=== PATIENT | male | born 1950 | race Caucasian/White ===

== ENCOUNTER 2024-11-25 08:12 | Outpatient (AMB) | payer MEDICAID, SELFPAY ==
[2024-11-25 08:40] VITALS: BP 115/78; PULSE 70; RESP 19; TEMP 36; O2SAT 96; BMI 28.5
--- NOTE | 2024-11-25 08:40 | PD.ORTHCLVIS ---
Vital signs 11/25/24 08:40 Height 1.7 m Height Method Stated Weight 82.639 kg Weight Measurement Method Standing Scale BMI 28.5 BP 115/78 Blood Pressure Source Automatic Cuff Blood Pressure Location Left Upper Arm Position Sitting Respiration 19 Pulse 70 Pulse Source Monitor Temp 96.8 F Temp Source Temporal Artery Scan Pulse Oximetry (%) 96 Oxygen Delivery Method Room Air Med/Allergies Allergies & Medications Allergies No Known Allergies Allergy (Verified 11/25/24 08:41) Medication Reconciliation No Known Home Medications 11/25/24 [History Confirmed 11/25/24] Exam Exam Patient is in no acute distress and is cooperative with the examination today. Breathing is nonlabored. In no respiratory distress. Bilateral extremities were evaluated and demonstrates sensation intact to light touch. Palpable pedal pulses are present. No significant edema is present. Bilateral hips were examined. The patient has no pain with log roll of the hips. Internal rotation to 30 degrees and external rotation to 30 degrees is painless. Negative FADIR. The left knee was examined. The left knee is in varus alignment. Range of motion from 0-115 degrees. Knee is stable to varus and valgus as well as AP translation with <5mm. Patient has a negative McMurrays. There is no pain with patellofemoral compression and no crepitus noted. The knee is tender to palpation medially. The right knee was also examined. The right knee is in varus alignment. Range of motion from 0-120 degrees. Knee is stable to varus and valgus as well as AP translation with <5mm. Patient has a negative McMurrays. There is no pain with patellofemoral compression and no crepitus noted. The knee is tender to palpation medially. bilateral knee xrays from [facility] demonstrate complete joint space narrowing and osteophytes. There is singificant varus deformity,. Assessment and Plan Problem List (1) Bilateral primary osteoarthritis of knee: Status: Acute Plan: Patient is a 73-year-old female with bilateral knee pain and bilateral knee arthritis. He has failed conservative treatment. New to the pain. The pain quality life. On the right side he does have a prior tibial nail That would need to be removed prior to surgery. The pain is significantly worse than the left and good like to start with that side The nature and purpose of the total knee replacement, alternative method(s) of treatment, the material risks involved, and the possibility of complications were fully explained to the patient. The patient does NOT have any of the following contraindications to TKA: - Active infection of the knee joint, OR - Active systemic bacteremia, OR - Active skin infection or open wound at surgical site, OR - Neuropathic arthritis, OR - Severe, rapidly progressive neurological disease, OR - Severe medical condition that makes risks of surgery outweigh the potential benefit The patient was told the most common risks and complications associated with a total knee replacement include, but are not limited to: blood clots in the leg, fatal pulmonary embolism, dislocation of the prosthesis, intraoperative and postoperative fractures of the femur or tibia, infection, failure of the prosthesis or grafting materials, complications from anesthesia, reactions to blood transfusions, postoperative leg length inequality, instability of the knee replacement, nerve damage or injury, vascular injury, delayed wound healing, infection, other injury or even . In addition, there are risks associated with anesthesia given during this operation. Also, the patient was told that after undergoing a total knee replacement there may still be persistent pain or disability. The patient was informed that the success of this operation in part depends upon the mechanical devices which are going to be implanted and that these devices can fail or malfunction, and may need to be repaired or replaced and there are no guarantees as to the longevity of this device or its parts and that it or its parts could fail prematurely. The patient was also notified that during the course of surgery, there may be a need to use bone graft from donors, and that any bone graft used will be carefully screened for communicable diseases, including AIDS, hepatitis, Agusto-Creutzfeldt, or other diseases, but despite the screening procedures, there is a small chance that they could contract one of these diseases. Finally, the patient was asked to follow completely and fully with all advice and recommended treatments, and that recovery and ultimate outcome are affected by their compliance with recommended treatment. We discussed the risks, benefits and treatment alternatives, and the patient is interested in proceeding with surgery. We will try to set this up as expeditiously as possible. Advanced Care Planning Discussion Advance care planning discussed with:: patient and child Office Procedures GNS Level of Care Nursing/Assessment Patient Status: Initial/New Patient Nursing Assessment/Reassesment: Medication Reconciliation, Update PMH in EMR and Vital Signs Coordination of Care: Complex Care and Chronic Disease 1-5, Education Complex Pt/Fam, Consent,records obtained, informed consent, 1 Ins Authorization, Lab and Imaging orders, Results/Orders obtained and Staff clarify orders Special Needs: Language special needs New Patient Charge New Patient Point Assignment: 1124 New Patient Point Charge: ULTRASONIC HAND SOLDERER Level 4 ([id number]) MA Intake Visit Data Collection New Patient or Established: New Patient (never been to [facility]) Reason for Visit:: LEFT KNEE PAIN Seen by Clinical Staff ONLY (RN/MA): No Insulation Board Back Tender Required: Yes PCP or OBGYN visit in last 3 months: Yes Hx Now: No Do You Feel Safe at Home: Yes Authorities Contacted: N/A Questionairres Past Medical History Past Medical History Have you ever been diagnosed with any of the following: Surgical History Total Knee Replacement: Yes (RIGHT 2013) Subjective Visit Visit for: new patient and knee (RIGHT) Immunization / Flu Flu Vaccine in the Last 12 Months: No Flu Vaccine Exclusion Criteria: No Exclusion Criteria History of Present Illness Chief complaint: bilateral knee pain Patient ios a 73yo male with bilateral knee pain worse on the left. He had a history of a right tibial shaft fracture s/p nail 14 years ago. Patient has significant left arthritis and uses a cane because of the pain. He has tried antiinflammatories. Personal History Occupation: DISABLED Hobbies: NONE Pain Pain level (0-10): 5 Pain duration: WITH MOVEMENT Pain location: inside (medial) Pain quality: dull and aching Pain timing: increases with activity and stairs Associated signs & symptoms: stiffness Ambulatory data Ambulatory device: cane Treatments Improvement with previous injections: No Improvement with PT: No Improvement with NSAIDS: no Review of Systems Review of Systems: All systems negative unless otherwise noted in HPI.
== END 2024-11-25 09:16 | disposition home or self-care (01) ==
PROVIDERS: PCP Family Medicine; Referring Provider Family Medicine; Supervising Provider Orthopaedic Surgery Adult Reconstructive Orthopaedic Surgery; Visit Provider Orthopaedic Surgery Adult Reconstructive Orthopaedic Surgery
DX: M17.0 Bilateral primary osteoarthritis of knee (principal); M25.562 Pain in left knee; M25.561 Pain in right knee
CPT/HCPCS: 99204; G0463

== ENCOUNTER → 2024-11-25 | Outpatient (CLI) | payer MEDICAID, SELFPAY ==
--- NOTE | 2024-11-25 09:47 | XR_ITS ---
Examination: Bilateral knees 2 views Right lateral knee left lateral knee 2 views Bilateral axial knees single view TECHNIQUE: Bilateral AP knees standing single view, bilateral PA knees standing single view 30 degrees flexion Staining right lateral knee left lateral knee 2 views Bilateral axial knees single view total 5 views Exam date and time: November 25, 2024 1031 hours INDICATIONS: Bilateral knee pain chronic years FINDINGS: Moderate osteopenia Severe narrowing [id number] medial joint spaces bilaterally Partial visualization tibial intramedullary miladys Significant osteoarthritis lateral and especially bilateral patellofemoral joints No fracture IMPRESSION: Advanced tricompartment osteoarthritis including severe narrowing, [id number], medial joint spaces bilaterally
--- NOTE | 2024-11-25 09:47 | XR_ITS ---
Examination: Bilateral tibia-fibula is 4 views TECHNIQUE: AP lateral right and left tibia-fibula is total 4 views Exam date and time: November 25, 2024 1039 hours INDICATIONS: Bilateral tibia-fibula pain post injury 2013 FINDINGS: Thickened osteopenia No fracture or dislocation acute involving either lower leg Healed fractures distal right fibular shaft, proximal right tibial shaft Satisfactory position intramedullary tibial miladys Significant knee osteoarthritis IMPRESSION: Healed fractures right distal fibular shaft and proximal right tibial shaft
== END | disposition home or self-care (01) ==
LOC: CDIM 09:30
PROVIDERS: Referring Provider Orthopaedic Surgery Adult Reconstructive Orthopaedic Surgery; Visit Provider Orthopaedic Surgery Adult Reconstructive Orthopaedic Surgery
DX: M25.862 Other specified joint disorders, left knee (principal); M25.861 Other specified joint disorders, right knee; M17.0 Bilateral primary osteoarthritis of knee; Z87.81 Personal history of (healed) traumatic fracture
CPT/HCPCS: 73564; 73590

== ENCOUNTER 2025-02-20 15:01 | Outpatient (AMB) | payer MEDICAID, SELFPAY ==
[2025-02-20 15:20] VITALS: BP 126/76; PULSE 72; RESP 19; TEMP 36.6; O2SAT 96; BMI 29.0
--- NOTE | 2025-02-20 15:20 | PD.ORTHCLVIS ---
Vital signs 02/20/25 15:20 Height 1.7 m Height Method Measured Weight 83.971 kg Weight Measurement Method Standing Scale BMI 29.0 BP 126/76 Blood Pressure Source Automatic Cuff Blood Pressure Location Right Upper Arm Position Sitting Respiration 19 Pulse 72 Pulse Source Monitor Temp 97.8 F Temp Source Temporal Artery Scan Pulse Oximetry (%) 96 Oxygen Delivery Method Room Air Med/Allergies Allergies & Medications Allergies No Known Allergies Allergy (Verified 02/20/25 15:21) Medication Reconciliation No Known Home Medications 11/25/24 [History Confirmed 02/20/25] Exam Exam Patient is in no acute distress and is cooperative with the examination today. Breathing is nonlabored. In no respiratory distress. Bilateral extremities were evaluated and demonstrates sensation intact to light touch. Palpable pedal pulses are present. No significant edema is present. Bilateral hips were examined. The patient has no pain with log roll of the hips. Internal rotation to 30 degrees and external rotation to 30 degrees is painless. Negative FADIR. The left knee was examined. The left knee is in varus alignment. Range of motion from 0-115 degrees. Knee is stable to varus and valgus as well as AP translation with <5mm. Patient has a negative McMurrays. There is no pain with patellofemoral compression and no crepitus noted. The knee is tender to palpation medially. The right knee was also examined. The right knee is in varus alignment. Range of motion from 0-120 degrees. Knee is stable to varus and valgus as well as AP translation with <5mm. Patient has a negative McMurrays. There is no pain with patellofemoral compression and no crepitus noted. The knee is tender to palpation medially. bilateral knee xrays from [facility] demonstrate complete joint space narrowing and osteophytes. There is singificant varus deformity,. Assessment and Plan Problem List (1) Bilateral primary osteoarthritis of knee: Status: Acute Plan: Patient is a 73-year-old female with bilateral knee pain and bilateral knee arthritis. He has failed conservative treatment. He would like to start with surgery on the left knee as this is significantly worse. The pain is affecting his quality life and happiness. On the right side he does have a prior tibial nail That would need to be removed prior to surgery. The pain is significantly worse than the left and good like to start with that side The nature and purpose of the total knee replacement, alternative method(s) of treatment, the material risks involved, and the possibility of complications were fully explained to the patient. The patient does NOT have any of the following contraindications to TKA: - Active infection of the knee joint, OR - Active systemic bacteremia, OR - Active skin infection or open wound at surgical site, OR - Neuropathic arthritis, OR - Severe, rapidly progressive neurological disease, OR - Severe medical condition that makes risks of surgery outweigh the potential benefit The patient was told the most common risks and complications associated with a total knee replacement include, but are not limited to: blood clots in the leg, fatal pulmonary embolism, dislocation of the prosthesis, intraoperative and postoperative fractures of the femur or tibia, infection, failure of the prosthesis or grafting materials, complications from anesthesia, reactions to blood transfusions, postoperative leg length inequality, instability of the knee replacement, nerve damage or injury, vascular injury, delayed wound healing, infection, other injury or even . In addition, there are risks associated with anesthesia given during this operation. Also, the patient was told that after undergoing a total knee replacement there may still be persistent pain or disability. The patient was informed that the success of this operation in part depends upon the mechanical devices which are going to be implanted and that these devices can fail or malfunction, and may need to be repaired or replaced and there are no guarantees as to the longevity of this device or its parts and that it or its parts could fail prematurely. The patient was also notified that during the course of surgery, there may be a need to use bone graft from donors, and that any bone graft used will be carefully screened for communicable diseases, including AIDS, hepatitis, Agusto-Creutzfeldt, or other diseases, but despite the screening procedures, there is a small chance that they could contract one of these diseases. Finally, the patient was asked to follow completely and fully with all advice and recommended treatments, and that recovery and ultimate outcome are affected by their compliance with recommended treatment. We discussed the risks, benefits and treatment alternatives, and the patient is interested in proceeding with surgery. We will try to set this up as expeditiously as possible. Advanced Care Planning Discussion Advance care planning discussed with:: patient and child Office Procedures GNS Level of Care Nursing/Assessment Patient Status: Established Patient Nursing Assessment/Reassesment: Medication Reconciliation, Update PMH in EMR and Vital Signs Coordination of Care: Complex Care/Chronic Disease 5 or more, Education Complex Pt/Fam, Consent,records obtained, informed consent, 1 Ins Authorization, Results/Orders obtained and Staff clarify orders Established Patient Charge Established Patient Point Assignment: 120 Established Patient Point Charge: EP Level 4 (120-155) MA Intake Visit Data Collection New Patient or Established: Established Patient (seen at [facility] within 3 years) Reason for Visit:: PRE OP TKA Shearing Machine Feeder Required: Yes Do You Feel Safe at Home: Yes Questionairres Past Medical History Past Medical History Have you ever been diagnosed with any of the following: Respiratory Problems Smoking: No Smoking Exposure: No Surgical History Total Knee Replacement: Yes (RIGHT 2013) Subjective Visit Visit for: new patient and knee (RIGHT) Immunization / Flu Flu Vaccine in the Last 12 Months: No Flu Vaccine Exclusion Criteria: No Exclusion Criteria and Already Received History of Present Illness Chief complaint: bilateral knee pain Patient ios a 73yo male with bilateral knee pain worse on the left. He had a history of a right tibial shaft fracture s/p nail 14 years ago. Patient has significant left arthritis and uses a cane because of the pain. He has tried antiinflammatories and has tried several years of home excercises. He is using a cane or a crutch because of the pain. Personal History Occupation: DISABLED Hobbies: NONE Red flag PMH: none BMI Counceling provided: Yes Pain Pain level (0-10): 5 Pain duration: WITH MOVEMENT Pain location: inside (medial) Pain quality: dull and aching Pain timing: increases with activity and stairs Associated signs & symptoms: stiffness Ambulatory data Ambulatory device: cane Treatments Improvement with previous injections: No Improvement with PT: No Improvement with NSAIDS: no Review of Systems Review of Systems: All systems negative unless otherwise noted in HPI.
== END 2025-02-20 15:34 | disposition home or self-care (01) ==
LOC: HODSRG 15:01
PROVIDERS: Supervising Provider Orthopaedic Surgery Adult Reconstructive Orthopaedic Surgery; Visit Provider Orthopaedic Surgery Adult Reconstructive Orthopaedic Surgery
DX: M17.0 Bilateral primary osteoarthritis of knee (principal); M25.562 Pain in left knee; M25.561 Pain in right knee
CPT/HCPCS: 99214; G0463

== ENCOUNTER → 2025-02-27 | Outpatient (CLI) | payer MEDICAID, SELFPAY ==
--- NOTE | 2025-02-27 16:00 | XR_ITS ---
Examination: CT left lower extremity, without contrast. 2-D sagittal reconstructions. 2-D coronal reconstructions. 3-D reconstructions. Date and time of exam:February 27, 2025 1820 hrs. Indications: Diagnosis unilateral left knee osteoarthritis left knee pain one year CTDI: vol (mGy):10.1 DLP: (mGycm):612 Technique: Multiple 1.25 mm axial sections of the left lower extremity without intravenous contrast have been obtained. 2-D sagittal and coronal reconstructions have been obtained. 3-D reconstructions have been obtained. Low dose protocols were performed. One or more of the following dose reduction techniques were used; automated exposure control, adjustment of the mA and/or KV according to patient size, use of iterative reconstruction technique. Findings: Mild to moderate narrowing hip joints No hip fractures Advanced tricompartment osteoarthritis left knee,. Severe narrowing medial joint space No fracture No avascular necrosis No patellar dislocation Impression: Advanced tricompartment osteoarthritis left knee
== END | disposition home or self-care (01) ==
PROVIDERS: PCP Family Medicine; Referring Provider Orthopaedic Surgery Adult Reconstructive Orthopaedic Surgery; Visit Provider Orthopaedic Surgery Adult Reconstructive Orthopaedic Surgery
DX: M17.12 Unilateral primary osteoarthritis, left knee (principal)
CPT/HCPCS: 73700

== ENCOUNTER 2025-03-20 08:25 | Day surgery (SDC) | payer MEDICAID, SELFPAY ==
[2025-03-16 09:08] LABS: Basophils # (Auto) 0.1 Thou/mm3 (0.0-0.2); Basophils % (Auto) 1 % (0-2.5); Eosinophils # (Auto) 0.1 Thou/mm3 (0.0-0.5); Eosinophils % (Auto) 1 % (0-10); Hematocrit 41.9 % (41.0-53.0); Hemoglobin 14.1 g/dL (13.5-16.0); Immature Granulocytes % (Auto) 0 % (0-0); Immature Granulocytes Auto 0.03 Thou/mm3 (0.00-0.00); Lymphocytes # (Auto) 2.7 Thou/mm3 (1.0-4.8); Lymphocytes % (Auto) 31 % (10-50); Mean Corpuscular HGB Conc 33.7 g/dl (31.0-37.0); Mean Corpuscular Volume 86 fL (80-100); Monocytes # (Auto) 0.8 Thou/mm3 (0.0-0.8); Monocytes % (Auto) 9 % (0-12); Neutrophils # (Auto) 5.1 Thou/mm3 (1.8-7.7); Neutrophils % (Auto) 58 % (37-80); Nucleated Red Blood Cell % 0 /100 WBC (0); Platelet Count 260 Thou/mm3 (140-440); RDW Standard Deviation 43.6 fL (35.1-43.9); Red Blood Count 4.86 Miln/mm3 (4.50-5.90); White Blood Count 8.8 Thou/mm3 (3.8-10.6)
[2025-03-16 09:30] LABS: Alanine Aminotransferase 24 U/L (10-49); Albumin, Serum 4.3 gm/dL (3.4-4.8); Albumin/Globulin Ratio 1.6 (1.2-2.2); Alkaline Phosphatase 92 U/L (46-116); Anion Gap 9 (7-16); Aspartate Amino Transferase 25 U/L (0-34); BUN/Creatinine Ratio 8 Ratio (12-20); Bilirubin,Total 0.8 mg/dL (0.3-1.2); Blood Urea Nitrogen 9 mg/dL (9-23); Calcium 8.9 mg/dL (8.3-10.6); Calcium (Corrected) 8.9 mg/dL (8.5-10.1); Chloride 106 mMol/L (98-107); Creatinine (Component) 1.1 mg/dL (0.6-1.3); Estimated Creatinine Clearance 60.9 mL/min (>60); Globulin 2.7 gm/dL (2.3-3.5); Glucose 99 mg/dL (74-106); Osmolality,Calculated 278 (275-295); Potassium 4.1 mMol/L (3.4-5.1); Sodium 140 mMol/L (136-145); eGFR > 60 See Note
[2025-03-16 09:39] LABS: Partial Thromboplastin Time 27.4 Seconds (22.0-36.0)
[2025-03-20] VITALS (18 sets, daily range): BP systolic 113–155; BP diastolic 74–96; PULSE 60–95; RESP 12–20; TEMP 36.2–36.7; O2SAT 93–98; BMI 29.6
[2025-03-20] MEDS: ACETAMINOPHEN 325 MG TABLET 650 MG PO (09:21)
[2025-03-20] MEDS: MELOXICAM 7.5 MG TABLET PO (09:22)
[2025-03-20] MEDS: PREGABALIN 75 MG CAPSULE PO (09:22)
[2025-03-20] MEDS: RINGERS LACTATED 1000 ML 1,000 ML 20 ML IV (09:23)
--- NOTE | 2025-03-20 09:40 | SUR.PREOP ---
Patient expressed gratitude for prayer before their procedure.
--- NOTE | 2025-03-20 13:37 | ESOP_ITS ---
Date of Procedure 03/20/25 Pre Op Diagnosis left knee osteoarthritis Post Op Diagnosis left knee osteoarthritis Procedure left total knee replacement Findings full thickness cartilage loss and osteophytes Procedure Description Indication: The patient is a 74 year old who has a long history of left knee pain. X-rays show degenerative arthritis involving the knee. Over the past several years the patient has had increasing pain, progressive limitation in function. He has failed conservative measures including activity modification, physical therapy, injections, anti-inflammatories, and assistive devices. After a lengthy discussion of the risks and benefits, the patient presents now for total knee replacement. The nature and purpose of the total knee replacement, alternative method(s) of treatment, the material risks involved, and the possibility of complications were fully explained to the patient. The patient was told the most common risks and complications associated with a total knee replacement include, but are not limited to blood clots in the leg, fatal pulmonary embolism, dislocation of the prosthesis, intraoperative and postoperative fractures of the femur or tibia, infection, failure of the prosthesis or grafting materials, complications from anesthesia, reactions to blood transfusions, postoperative leg length inequality, instability of the knee replacement, nerve damage or injury, vascular injury, delayed wound healing, infections, other injury or even . In addition, there are risks associated with anesthesia given during this operation, temporary or permanent numbness on the skin lateral to the incision can be a complication unique to total knee surgery, and kneeling can be painful after knee replacement surgery. Also, the patient was told that after undergoing a total knee replacement there may still be pain or disability. We discussed with the patient that we will be using a robot-assisted technology. We discussed that there is a possibility of converting to manual instrumentation. The patient was informed that the success of this operation in part depends upon the mechanical devices which are going to be implanted and that these devices can fail or malfunction, and may need to be repaired or replaced and there are no guarantees as to the longevity of this device or its part and that it or its parts could fail prematurely. Finally, the patient was asked to follow completely and fully with all advice and recommended treatments, and that recovery and ultimate outcome are affected by their compliance with recommended treatment. Surgical technique: Patient was marked and consented in the pre-operative area. The patient was brought to the operating room and placed on the operating table in a supine position. Prior to positioning, a timeout procedure was performed between the surgeon, the anesthesiologist, and the nursing staff where the patient and the operative side were identified and confirmed. After adequate general anesthetic was obtained, the left lower extremity was prepped and draped in the usual sterile fashion. A weight based dose of Cefazolin were administered within 1 hour prior to incision. The robot was preregistered and calirated before the incision. The extremity was exsanguinated with an esmarch badge and tourniquet inflated to 250mmHg. A midline incision was made. A median parapatellar arthrotomy was made. The patella was subluxed laterally. A medial release was performed to expose the medial tibia. His femoral and tibial pins were placed through an intra incisional manner for both cases. Every effort was made to ensure that the distalmost aspect of the pin was hung in the second cortex. The arrays were then tightened several times to ensure that it was fixed for the remainder of the case. Both femoral and tibial checkpoints were then placed. We then went through the registration process of the bone. We then assessed the knee deformity and attempted to correct it. We also used the robot to aid in judging laxity in both extension and flexion. Final based on laxity and alignment we changed the preoperative assessment to obtain proper proper implant positioning and to correct deformity. Attention was then placed to the tibia. We made a tibial cut using the robot ensuring that both the MCL and the patella tendon were protected with retractors. We then went to the femur and made the posterior cut followed by the anterior cut and the anterior chamfer. The bone was then removed and we made a distal femur cut and a posterior chamfer cut. We verified all cuts. A trial reduction was performed with a size 4 femoral component and a size 4 keeled tibial component. The patella was cut and sized to a [33]. The patella tracked centrally, and no lateral retinacular release was necessary. The trial implants were removed. The arrays, pins, and checkpoints were all removed. We performed a verification that all pins were removed. The cut bone surfaces were lavaged. A size 4 left femoral component, a size 4 keeled tibial component were impacted into position. The knee was felt to be well balanced in the sagittal and coronal plane. The final 4x10 mm cruciate- substituting articular insert was impacted into the tibial tray. The knee was brought out to full extension, flexed up to 120 degrees. It was stable to varus and valgus stress and appropriately balanced in flexion and extension. The wounds were copiously irrigated following deflation of tourniquet. The medial retinaculum was reapproximated with #1 vicryl and quill. The subcutaneous tissues were closed with 0 and 2-0 interrupted Vicryl. The skin was closed with 3-0 Monofilament V loc suture. A sterile dressing was applied. The patient was transferred to a bed and brought to recovery in stable condition. The patient tolerated the procedure well. There were no intraoperative complications. Sponge and needle counts were correct times 2. As the attending surgeon, I attest I was present and performed the entire operation. Grafts/Implants Size 4 CR Femur Size 4 Tibia 10mm poly CS Anesthesia spinal Implants deana Pathology / specimen None Pathology comment: none Estimated Blood Loss 150 Condition Stable Disposition same day Surgeon Homero Pino MD Surgical Staff Operation Date: 03/20/25 14:00 Case Staff Anesthesiologist: Pedro Luis Kevin RN First Assistant: Danni Nice
--- NOTE | 2025-03-20 13:40 | XR_ITS ---
Examination: Left knee 2 views TECHNIQUE: AP lateral left knee 2 views portable Date time: Mar 20 2025 1651 hours INDICATIONS: Postop knee replacement today. FINDINGS: Total left knee replacement. Satisfactory alignment No fracture 23 mm ossified joint body posterior joint space IMPRESSION: Total left knee replacement with satisfactory alignment
--- NOTE | 2025-03-20 13:40 | SUR.PHASEI ---
pt arrived to PACU via gurney awake, alert, able to follow commands, breathing unlabored, dressing to left lower extremity clean, dry, and intact, pedal pulses present/strong/equal bilaterally, report from Fransisca LOMELI, Israel WILSON, and Dr Kevin.
--- NOTE | 2025-03-20 13:50 | SUR.PHASEI ---
pt tolerating oral fluids without difficulty swallowing or n/v
--- NOTE | 2025-03-20 15:00 | SUR.PHASEII ---
pt awake, alert, able to follow commands, breathing unlabored, dressing to left lower extremity clean, dry, and intact, VS stable, report to Carrie LOMELI
--- NOTE | 2025-03-20 17:27 | SUR.PHASEII ---
1500: Assumed care. Pt resting with no complaints voiced. VS stable. Dressing dry, clean, intact. Pedal pulses strong, regular. No c/o pain. 1630: Pt awake. Sitting up tolerating po fluids with no difficulty swallowing and no n/v. 1640: Pt states feeling to perineal area. Radiology here to take ordered x-rays. Daughter in at bedside. 1700: Physical Therapy here to do assessment. Pt assisted to restroom. Unable to void. 1730: at bedside. Pt being provided fluids.
--- NOTE | 2025-03-20 18:57 | SUR.PHASEII ---
181: Pt stated he felt he needed to void. Pt disconnected for monitor and assisted to restroom. Ambulation steady. 1819: Pt voided in toilet and assisted back to [facility]. Daughter at bedside to assist with dressing. 1844: Pt dressed and assisted to transport chair. Pt and daughter did not wish to use telephone dredge runner. Insisted grand daughter interpret via telephone. All stated understanding of discharge instructions. Pt also instructed to diamond picker his prescription at his pharmacy. Pt discharged from [facility] in stable condition.
== END 2025-03-20 18:45 | disposition home or self-care (01) ==
PROVIDERS: Anesthesiology; PCP Family Medicine; Referring Provider Orthopaedic Surgery Adult Reconstructive Orthopaedic Surgery; Visit Provider Orthopaedic Surgery Adult Reconstructive Orthopaedic Surgery
PROC: (CPT 27447; principal; 2025-03-20 13:45)
DX: M17.12 Unilateral primary osteoarthritis, left knee (principal); M25.762 Osteophyte, left knee
CPT/HCPCS: 27447; 20985; 36415; 73560; 80053; 85025; 85610; 85730; 97162; A4217; C1713; C1776; J2250; J2704; J2795; J3010; J3490; J7030; J7120; J7999; A4648; A4649; A9270

== ENCOUNTER 2025-04-04 13:02 | Outpatient (AMB) | payer MEDICAID, SELFPAY ==
[2025-04-04 13:20] VITALS: BP 136/80; PULSE 94; RESP 18; TEMP 36.8; O2SAT 95; BMI 27.9
--- NOTE | 2025-04-04 13:20 | ORTHONT_ITS ---
Vital signs 04/04/25 13:20 Height 1.7 m Height Method Stated Weight 80.966 kg Weight Measurement Method Standing Scale BMI 27.9 BP 136/80 H Blood Pressure Source Automatic Cuff Blood Pressure Location Left Upper Arm Position Sitting Respiration 18 Pulse 94 Pulse Source Monitor Temp 98.3 F Temp Source Temporal Artery Scan Pulse Oximetry (%) 95 Oxygen Delivery Method Room Air Med/Allergies Allergies & Medications Allergies No Known Allergies Allergy (Verified 04/04/25 13:21) Medication Reconciliation acetaminophen 500 mg tablet (Acetaminophen Extra Strength) 1,000 mg (2 x 500 mg) PO Q6H PRN pain #90 tabs 03/20/25 [Rx Confirmed 04/04/25] aspirin 81 mg tablet,delayed release 81 mg PO BID #60 tabs 03/20/25 [Rx Confirmed 04/04/25] doxycycline hyclate 100 mg tablet 100 mg PO BID #14 tabs 03/20/25 [Rx Confirmed 04/04/25] gabapentin 300 mg capsule 300 mg PO .qhs #30 caps 03/20/25 [Rx Confirmed 04/04/25] oxycodone 5 mg tablet 5 mg PO Q6H PRN pain #28 tabs 03/20/25 [Rx Confirmed 03/10 06/02] sennosides 8.6 mg-docusate sodium 50 mg tablet (Senna-S) 1 tab-cap PO QDAY #30 tabs 03/20/25 [Rx Confirmed 04/04/25] Exam Exam Patient is in no acute distress and is cooperative with the examination today. Breathing is nonlabored. In no respiratory distress. Bilateral extremities were evaluated and demonstrates sensation intact to light touch. Palpable pedal pulses are present. No significant edema is present. Bilateral hips were examined. The patient has no pain with log roll of the hips. Internal rotation to 30 degrees and external rotation to 30 degrees is painless. Negative FADIR. The right knee was also examined. The right knee is in varus alignment. Range of motion from 0-120 degrees. Knee is stable to varus and valgus as well as AP translation with <5mm. Patient has a negative McMurrays. There is no pain with patellofemoral compression and no crepitus noted. The knee is tender to palpation medially. Left knee incision is clean dry and intact. Range of motion is 0 to 100 degrees bilateral knee xrays from [facility] demonstrate complete joint space narrowing and osteophytes. There is singificant varus deformity,. Assessment and Plan Problem List (1) Bilateral primary osteoarthritis of knee: Status: Acute Plan: Patient is a 73-year-old female with bilateral knee pain and bilateral knee arthritis. He has done well with his left total knee replacement. He is doing well. He would like a cortisone injection on the contralateral side today. Recommend knee cortisone injection as patient would like to proceed with conserv ative treatment at this time. The risks and benefits of the procedure were reviewed with the patient and patient gave verbal consent to continue with the procedure. Procedure: performed by Dr. Pino Using sterile technique the Right knee was thoroughly prepped with alcohol, and approximately 1 cc of Kenalog 40 mg/mL and 4 cc of 1% lidocaine was injected without resistance into the medial tibial femoral joint space. The patient tolerated the procedure. Advanced Care Planning Discussion Advance care planning discussed with:: patient Office Procedures GNS Level of Care Nursing/Assessment Patient Status: Established Patient Nursing Assessment/Reassesment: Medication Reconciliation, Update PMH in EMR and Vital Signs Coordination of Care: Complex Care and Chronic Disease 1-5, Consent,records obtained, informed consent, Education Simp Pt/Fam, Results/Orders obtained and Staff clarify orders Established Patient Charge Established Patient Point Assignment: 90 Established Patient Point Charge: EP Level 3 (80-115) Surgical Proc/IM SQ injection Major Surgical Procedure: Yes (KNEE INJECTION) Medication Given Medication Given Medication Given: Yes Documented Dose Given: 4 Route: Infiitration Medication Given Medication Given Medication Given: Yes Documented Dose Given: 1 Route: Infiitration Office Meds Xylocaine 10 mg/mL (1 %) injection solution Performing Provider: Homero Pino MD Performing Location: [facility] Administered by: Homero Pino MD on 04/04/25 13:31 Dose Route Admin Location Dispensed Lot Number Expiration Date [facility] [employer] Clerk 20 mL Infiltration 20 mL [id number] 08/08/28 22062-647-68 [facility] triamcinolone acetonide 40 mg/mL suspension for injection Performing Provider: Homero Pino MD Performing Location: [facility] Administered by: Homero Pino MD on 04/04/25 13:31 Dose Route Admin Location Dispensed Lot Number Expiration Date [facility] [employer] Clerk 40 mg intra-articular KNEE 1 mL [id number] 11/07/26 8404-3372-61 [employer] [place] Intake Visit Data Collection New Patient or Established: Established Patient (seen at [facility] within 3 years) Reason for Visit:: 2 WK POST OP LEFT TKA Seen by Clinical Staff ONLY (RN/MA): No Agricultural Adviser Required: No PCP or OBGYN visit in last 3 months: Yes Hx Now: No Do You Feel Safe at Home: Yes Authorities Contacted: N/A Questionairres Past Medical History Past Medical History Have you ever been diagnosed with any of the following: Neurological Problems Seizures: No Cardiology Problems Congestive Heart Failure: No Respiratory Problems Chronic Obstructive Pulmonary Disease (COPD): No Smoking: No Smoking Exposure: No Stomache/Intestinal Problems Hepatitis: No Obesity: Yes Genital/Urinary Problems Renal Disease: No Musculoskeletal Problems Arthritis: Yes Fractures: Yes (right lower leg has metal miladys) Endocrine Problems Diabetes Mellitus Type 1: No Diabetes Mellitus Type 2: No Other Problems Hospitalization: Yes (surgery) Shingles: No Blood Transfusions: No Blood Transfusion Reaction: No Anesthesia Reactions: No Chicken Pox: Yes Cancer: No Surgical History Total Knee Replacement: Yes (RIGHT 2013) Subjective Visit Visit for: follow up visit and post op #1 (2 WK POST OP LT TKA ) Immunization / Flu Flu Vaccine in the Last 12 Months: Yes Flu Vaccine Exclusion Criteria: Already Received History of Present Illness Chief complaint: Left knee pain Abelino is 2 weeks status post left total knee replacement. He is doing well. He reports his pain is well-controlled. He reports the right knee pain is what is bothering him the most. He would like a cortisone injection on that side Personal History Red flag PMH: none Pain Pain level (0-10): 5 Pain duration: 2 WEEKS Pain location: anterior Pain quality: dull, electric and tingling Pain timing: night Associated signs & symptoms: numbness Ambulatory data Ambulatory device: other (specify) (WHEELCHAIR ) Walking distance (minutes): 10 Treatments Number of previous injections: 0 Number of Physical Therapy sessions: 1 Improvement with PT: No Improvement with NSAIDS: n/a Review of Systems Review of Systems: All systems negative unless otherwise noted in HPI.
== END 2025-04-04 13:28 | disposition home or self-care (01) ==
LOC: HODSRG 13:02
PROVIDERS: PCP Family Medicine; Referring Provider Family Medicine; Supervising Provider Orthopaedic Surgery Adult Reconstructive Orthopaedic Surgery; Visit Provider Orthopaedic Surgery Adult Reconstructive Orthopaedic Surgery
DX: M17.0 Bilateral primary osteoarthritis of knee (principal); M25.562 Pain in left knee; M25.561 Pain in right knee; Z96.652 Presence of left artificial knee joint
CPT/HCPCS: 20610; 99213; J3301; J3490; G0463

== ENCOUNTER 2025-05-02 10:08 | Outpatient (AMB) | payer MEDICAID, SELFPAY ==
--- NOTE | 2025-05-02 10:41 | PD.ORTHCLVIS ---
Vital signs 05/02/25 10:46 Height 1.7 m Height Method Stated Weight 82.1 kg Weight Measurement Method Standing Scale BMI 28.4 BP 148/93 H Blood Pressure Source Automatic Cuff Blood Pressure Location Right Upper Arm Position Sitting Respiration 17 Pulse 77 Pulse Source Monitor Temp 98.4 F Temp Source Temporal Artery Scan Pulse Oximetry (%) 97 Oxygen Delivery Method Room Air Med/Allergies Allergies & Medications Allergies No Known Allergies Allergy (Verified 05/02/25 10:47) Medication Reconciliation acetaminophen 500 mg tablet (Acetaminophen Extra Strength) 1,000 mg (2 x 500 mg) PO Q6H PRN pain #90 tabs 03/20/25 [Rx Confirmed 05/02/25] aspirin 81 mg tablet,delayed release 81 mg PO BID #60 tabs 03/20/25 [Rx Confirmed 05/02/25] doxycycline hyclate 100 mg tablet 100 mg PO BID #14 tabs 03/20/25 [Rx Confirmed 05/02/25] gabapentin 300 mg capsule 300 mg PO .qhs #30 caps 03/20/25 [Rx Confirmed 05/02/25] oxycodone 5 mg tablet 5 mg PO Q6H PRN pain #28 tabs 03/20/25 [Rx Confirmed 05/02/25] sennosides 8.6 mg-docusate sodium 50 mg tablet (Senna-S) 1 tab-cap PO QDAY #30 tabs 03/20/25 [Rx Confirmed 05/02/25] Exam Exam Patient is in no acute distress and is cooperative with the examination today. Breathing is nonlabored. In no respiratory distress. Bilateral extremities were evaluated and demonstrates sensation intact to light touch. Palpable pedal pulses are present. No significant edema is present. Bilateral hips were examined. The patient has no pain with log roll of the hips. Internal rotation to 30 degrees and external rotation to 30 degrees is painless. Negative FADIR. The right knee was also examined. The right knee is in varus alignment. Range of motion from 0-120 degrees. Knee is stable to varus and valgus as well as AP translation with <5mm. Patient has a negative McMurrays. There is no pain with patellofemoral compression and no crepitus noted. The knee is tender to palpation medially. Left knee incision is clean dry and intact. Range of motion is 0 to 100 degrees Assessment and Plan Problem List (1) Bilateral primary osteoarthritis of knee: Status: Acute Plan: Patient is a 73-year-old female with bilateral knee pain and bilateral knee arthritis. He has done well with his left total knee replacement. We will see him back in 6 weeks for routine followup. We will get an xray Advanced Care Planning Discussion Advance care planning discussed with:: patient Office Procedures GNS Level of Care Nursing/Assessment Patient Status: Established Patient Nursing Assessment/Reassesment: Medication Reconciliation, Update PMH in EMR and Vital Signs Coordination of Care: Complex Care and Chronic Disease 1-5, Education Complex Pt/Fam, Consent,records obtained, informed consent, Results/Orders obtained and Staff clarify orders Special Needs: Language special needs (MARSHALLESE ) Established Patient Charge Established Patient Point Assignment: 95 Established Patient Point Charge: EP Level 3 (80-115) MA Intake Visit Data Collection New Patient or Established: Established Patient (seen at [facility] within 3 years) Reason for Visit:: 6 WEEK POST OP LEFT TKA Seen by Clinical Staff ONLY (RN/MA): No Director Of Nursing Required: Yes PCP or OBGYN visit in last 3 months: Yes Hx Now: No Do You Feel Safe at Home: Yes Authorities Contacted: N/A Questionairres Past Medical History Past Medical History Have you ever been diagnosed with any of the following: Neurological Problems Seizures: No Cardiology Problems Congestive Heart Failure: No Respiratory Problems Chronic Obstructive Pulmonary Disease (COPD): No Smoking: No Smoking Exposure: No Stomache/Intestinal Problems Hepatitis: No Obesity: Yes Genital/Urinary Problems Renal Disease: No Musculoskeletal Problems Arthritis: Yes Fractures: Yes (right lower leg has metal miladys) Endocrine Problems Diabetes Mellitus Type 1: No Diabetes Mellitus Type 2: No Other Problems Hospitalization: Yes (surgery) Shingles: No Blood Transfusions: No Blood Transfusion Reaction: No Anesthesia Reactions: No Chicken Pox: Yes Cancer: No Surgical History Total Knee Replacement: Yes (RIGHT 2013) Subjective Visit Visit for: follow up visit and post op #3 (LEFT TKA FOLLOW UP ) Immunization / Flu Flu Vaccine in the Last 12 Months: No Flu Vaccine Exclusion Criteria: Refused by Patient History of Present Illness Chief complaint: Left knee pain Abelino is 2 weeks status post left total knee replacement. He is doing well. He reports his pain is well-controlled. He is walking without any assistive device Personal History Red flag PMH: none Pain Pain level (0-10): 0 (PATIENT FEELS NUMBNESS NO PAIN) Pain duration: 02/2025 Pain location: anterior Pain quality: electric (ELECTRIC PAIN WHEN HE STANDS UP AND SITS DOWN) Pain timing: increases with activity Associated signs & symptoms: numbness (ALL DAY ) Ambulatory data Ambulatory device: cane Walking distance (minutes): 0 Treatments Number of previous injections: 0 Number of Physical Therapy sessions: 5 Improvement with PT: Yes Improvement with NSAIDS: n/a Review of Systems Review of Systems: All systems negative unless otherwise noted in HPI.
[2025-05-02 10:46] VITALS: BP 148/93; PULSE 77; RESP 17; TEMP 36.9; O2SAT 97; BMI 28.4
--- NOTE | 2025-05-02 11:06 | XR_ITS ---
Examination: Bilateral knees AP single view PA lateral axial left knee 3 views TECHNIQUE: Bilateral AP knees standing single view PA standing flexion left knee, standing lateral left knee, axial left knee 3 views total 4 views Date and time: May 02, 2025 1115 hours INDICATIONS: Status post left knee surgery one month ago FINDINGS: Moderate to advanced narrowing medial joint space right knee Old healed fracture proximal right tibia and proximal fibula Total left knee arthroplasty. Satisfactory alignment Posterior ossified left knee joint bodies, 23 mm, 8 mm IMPRESSION: Total left knee arthroplasty with satisfactory alignment
== END 2025-05-02 11:07 | disposition home or self-care (01) ==
LOC: HODSRG 10:08
PROVIDERS: PCP Family Medicine; Referring Provider Family Medicine; Supervising Provider Orthopaedic Surgery Adult Reconstructive Orthopaedic Surgery; Visit Provider Orthopaedic Surgery Adult Reconstructive Orthopaedic Surgery
DX: M17.0 Bilateral primary osteoarthritis of knee (principal); M25.562 Pain in left knee; M25.561 Pain in right knee; Z96.652 Presence of left artificial knee joint
CPT/HCPCS: 73564; 99213; G0463

== ENCOUNTER 2025-06-30 09:11 | Outpatient (AMB) | payer MEDICAID, SELFPAY ==
--- NOTE | 2025-06-30 09:42 | ORTHONT_ITS ---
Vital signs 06/30/25 09:43 Height 1.7 m Height Method Measured Weight 85.842 kg Weight Measurement Method Standing Scale BMI 29.7 BP 128/79 Blood Pressure Source Automatic Cuff Blood Pressure Location Left Upper Arm Position Sitting Respiration 18 Pulse 84 Pulse Source Monitor Temp 98.4 F Temp Source Temporal Artery Scan Pulse Oximetry (%) 94 L Oxygen Delivery Method Room Air Med/Allergies Allergies & Medications Allergies No Known Allergies Allergy (Verified 06/30/25 09:49) Medication Reconciliation acetaminophen 500 mg tablet (Acetaminophen Extra Strength) 1,000 mg (2 x 500 mg) PO Q6H PRN pain #90 tabs 03/20/25 [Rx Confirmed 06/30/25] gabapentin 300 mg capsule 300 mg PO .qhs #30 caps 03/20/25 [Rx Confirmed 06/30/25] Exam Exam Patient is in no acute distress and is cooperative with the examination today. Breathing is nonlabored. In no respiratory distress. Bilateral extremities were evaluated and demonstrates sensation intact to light touch. Palpable pedal pulses are present. No significant edema is present. Bilateral hips were examined. The patient has no pain with log roll of the hips. Internal rotation to 30 degrees and external rotation to 30 degrees is painless. Negative FADIR. The right knee was also examined. The right knee is in varus alignment. Range of motion from 0-120 degrees. Knee is stable to varus and valgus as well as AP translation with <5mm. Patient has a negative McMurrays. There is no pain with patellofemoral compression and no crepitus noted. The knee is tender to palpation medially. Left knee incision is clean dry and intact. Range of motion is 0 to 100 degrees Assessment and Plan Problem List (1) Bilateral primary osteoarthritis of knee: Status: Acute Plan: Patient is a 73-year-old female with bilateral knee pain and bilateral knee arthritis. He has done well with his left total knee replacement. He is doing fantastic does not take any assistive device. His x-rays look good. We can see him back in approximately 6 months to a year as he is going to [facility] Advanced Care Planning Discussion Advance care planning discussed with:: patient Office Procedures GNS Level of Care Nursing/Assessment Patient Status: Established Patient Nursing Assessment/Reassesment: Medication Reconciliation, Update PMH in EMR and Vital Signs Coordination of Care: Complex Care and Chronic Disease 1-5, Education Complex Pt/Fam, Consent,records obtained, informed consent, Results/Orders obtained and Staff clarify orders Established Patient Charge Established Patient Point Assignment: 95 Established Patient Point Charge: EP Level 3 (80-115) MA Intake Visit Data Collection New Patient or Established: Established Patient (seen at [facility] within 3 years) Reason for Visit:: REQUESTING CLEARANCE Seen by Clinical Staff ONLY (RN/MA): No Commercial Real Estate Broker Required: Yes PCP or OBGYN visit in last 3 months: Yes Hx Now: No Do You Feel Safe at Home: Yes Authorities Contacted: N/A Questionairres Past Medical History Past Medical History Have you ever been diagnosed with any of the following: Neurological Problems Seizures: No Cardiology Problems Congestive Heart Failure: No Respiratory Problems Chronic Obstructive Pulmonary Disease (COPD): No Smoking: No Smoking Exposure: No Stomache/Intestinal Problems Hepatitis: No Obesity: Yes Genital/Urinary Problems Renal Disease: No Musculoskeletal Problems Arthritis: Yes Fractures: Yes (right lower leg has metal miladys) Endocrine Problems Diabetes Mellitus Type 1: No Diabetes Mellitus Type 2: No Other Problems Hospitalization: Yes (surgery) Shingles: No Blood Transfusions: No Blood Transfusion Reaction: No Anesthesia Reactions: No Chicken Pox: Yes Cancer: No Surgical History Total Knee Replacement: Yes (RIGHT 2013) Subjective Visit Visit for: follow up visit and knee Immunization / Flu Flu Vaccine in the Last 12 Months: No Flu Vaccine Exclusion Criteria: Refused by Patient History of Present Illness Chief complaint: REQUESTING CLEARANCE Abelino is 12 weeks status post left total knee replacement. He is doing well. He reports his pain is well-controlled. He is walking without any assistive device Personal History Red flag PMH: none Pain Pain level (0-10): 0 (PATIENT FEELS NUMBNESS NO PAIN) Pain duration: 02/2025 Pain location: anterior Pain quality: electric (ELECTRIC PAIN WHEN HE STANDS UP AND SITS DOWN) Pain timing: increases with activity Associated signs & symptoms: numbness (ALL DAY ) Ambulatory data Ambulatory device: none Walking distance (minutes): 0 Treatments Number of previous injections: 0 Number of Physical Therapy sessions: 5 Improvement with PT: Yes Improvement with NSAIDS: n/a Review of Systems Review of Systems: All systems negative unless otherwise noted in HPI.
[2025-06-30 09:43] VITALS: BP 128/79; PULSE 84; RESP 18; TEMP 36.9; O2SAT 94; BMI 29.7
== END 2025-06-30 10:09 | disposition home or self-care (01) ==
LOC: HODSRG 09:11
PROVIDERS: PCP Family Medicine; Referring Provider Family Medicine; Supervising Provider Orthopaedic Surgery Adult Reconstructive Orthopaedic Surgery; Visit Provider Orthopaedic Surgery Adult Reconstructive Orthopaedic Surgery
DX: M17.0 Bilateral primary osteoarthritis of knee (principal); M25.562 Pain in left knee; M25.561 Pain in right knee; Z96.652 Presence of left artificial knee joint
CPT/HCPCS: 99213; G0463